=== PATIENT | female | born 1950 | race Caucasian/White ===

== ENCOUNTER 2020-10-05 13:59 | Emergency (ER) | payer MEDICARE ==
[~2020-10-05] VITALS: Ht 154.9 cm; Wt 86.6 kg
[2020-10-05] MEDS ORDERED: KETOROLAC 30 MG/ML VIAL. IVP ONE (14:30)
[2020-10-05] MEDS ORDERED: fentaNYL PF VIAL 100 MCG/2 ML VIAL IVP ONE (14:30)
[2020-10-05] MEDS ORDERED: KETOROLAC 15 MG/ML VIAL. IVP ONE (14:30)
--- NOTE | 2020-10-05 15:28 | RAD ---
EXAM: XR HUMERUS_LT 2 VIEWS, XR FOOT_RIGHT 3 VIEWS, XR SHOULDER_LEFT 2+ VIEWS 10/05/2020 2:24 PM CLINICAL INDICATION: Fall, left shoulder and humerus pain, right foot pain COMPARISON: None TECHNIQUE: 3 views of the right foot, 2 views of the left humerus, 3 views of the left shoulder FINDINGS: Right foot: There is a nondisplaced oblique fracture of the great toe proximal phalanx shaft. The bon es are diffusely demineralized. Old fifth metatarsal fracture. There is hallux valgus and mild degene rative joint disease of the great toe MTP joint. Mild degenerative joint disease of the midfoot. Medi al and lateral malleoli hardware noted. Mild diffuse soft tissue swelling. Left humerus: There is a humeral neck fracture with 1.5 to 2 cm anterior displacement of the distal fragment. No glenohumeral dislocation. Alignment at the elbow is maintained. Left shoulder: Displaced humeral neck fracture. The humeral head remains normally aligned with the gl enoid. IMPRESSION: 1. Nondisplaced oblique fracture of the right great toe proximal phalanx. 2. Displaced left humeral neck fracture. No dislocation. Electronically signed by: Romy Johnson MD (10/05/2020 3:25 PM) [id number]
--- NOTE | 2020-10-05 16:14 | PHYS DOC ---
Past Medical History Past Medical History: Hypertension Past Surgical History: Other Additional Past Surgical Histo: R shoulder, Bilat knee Smoking Status: Never Smoker Alcohol Use: None General Adult EDM: Chief Complaint: MECHANICAL FALL HPI: HPI: Patient is a 70 year old female who reports that she tripped and fell forward catching herself with her hands on the ground feeling her left shoulder pop and injuring her right great toe. Patient denies loss of consciousness, denied numbness or tingling, states that she thinks she broke her left arm, states she has not sure that she does not think she broke her right great toe because she can walk on it. Patient denies any chest pain or shortness of breath or chest palpitations, patient denies any loss of consciousness, patient denies any nasal congestion. Patient denies any back pain or swelling to her extremities. Patient denies any numbness or tingling to her right great toe or to her left arm. Patient denies any other physical symptoms or physical complaints. Review of Systems: Review of Systems: 14 body systems of review of systems have been reviewed. See HPI for pertinent positives and negative responses, otherwise all other systems are negative, nonpertinent or noncontributory. Heart Score: Risk Factors: Risk Factors: DM, Current or recent (<one month) smoker, HTN, HLP, family history of CAD, obesity. Risk Scores: Score 0 - 3: 2.5% MACE over next 6 weeks - Discharge Home Score 4 - 6: 20.3% MACE over next 6 weeks - Admit for Clinical Observation Score 7 - 10: 72.7% MACE over next 6 weeks - Early Invasive Strategies Current Medications: See nursing documentation for updated med list. Current Medications Medications (Trade) Dose Ordered Sig/[facility] Start Time Stop Time Status Last Admin Dose Admin Fentanyl Citrate (Fentanyl 2ml Vial) 50 mcg 1X ONCE 10/05/20 14:30 10/05/20 14:31 DC 10/05/20 15:10 50 MCG Ketorolac Tromethamine (Toradol 15mg Vial) 15 mg 1X ONCE 10/05/20 14:30 10/05/20 14:31 DC 10/05/20 15:09 15 MG Ketorolac Tromethamine (Toradol 30mg Vial) 30 mg 1X ONCE 10/05/20 14:30 10/05/20 14:31 Cancel Allergies: Allergies: Allergies Coded Allergies Type Severity Reaction Last Updated Verified No Known Drug Allergies 10/05/20 No Physical Exam: PE: Constitutional: Well developed, well nourished, no acute distress, non-toxic appearance. [] HENT: Normocephalic, atraumatic, bilateral external ears normal, oropharynx mo ist, no oral exudates, nose normal. [] Eyes: PERRLA, EOMI, conjunctiva normal, no discharge. [] Neck: Normal range of motion, no tenderness, supple, no stridor. [] Cardiovascular:Heart rate regular rhythm, no murmur [] Lungs & Thorax: Bilateral breath sounds clear to auscultation [] Abdomen: Bowel sounds normal, soft, no tenderness, no masses, no pulsatile masses. [] Skin: Warm, dry, no erythema, no rash. [] Back: No tenderness, no CVA tenderness. [] Extremities: , no cyanosis, no clubbing,, no edema. Pain to right great toe to palpation, full ROM, distal cap refill less than 2 seconds, no swelling no crepitus noted. Left upper shoulder limited range of motion related to pain, no deformity noted, distal cap refill less than 2 seconds, no neurovascular compromise, patient did not complain of numbness or tingling, there is no crepitus noted however only limited range of motion was achieved because of the elicited pain Neurologic: Alert and oriented X 3, normal motor function, normal sensory function, no focal deficits noted. [] Psychologic: Affect normal, judgement normal, mood normal. [] Current Patient Data: Vital Signs: Vital Signs Date Time Temp Pulse Resp B/P (MAP) Pulse Ox O2 Delivery O2 Flow Rate FiO2 10/05/20 15:10 18 97 Room Air 10/05/20 14:15 98.2 87 154/74 (100) 98.2 EKG: EKG: [] Radiology/Procedures: Radiology/Procedures: STATUS: REG ER ORD. PHYSICIAN: CHRISTY COATS APRN REASON: Fall, LT SHOULDER PAIN PROCEDURE: SHOULDER 2+V LEFT EXAM: XR HUMERUS_LT 2 VIEWS, XR FOOT_RIGHT 3 VIEWS, XR SHOULDER_LEFT 2+ VIEWS 10/05/2020 2:24 PM CLINICAL INDICATION: Fall, left shoulder and humerus pain, right foot pain COMPARISON: None TECHNIQUE: 3 views of the right foot, 2 views of the left humerus, 3 views of the left shoulder FINDINGS: Right foot: There is a nondisplaced oblique fracture of the great toe proximal phalanx shaft. The bones are diffusely demineralized. Old fifth metatarsal fracture. There is hallux valgus and mild degenerative joint disease of the great toe MTP joint. Mild degenerative joint disease of the midfoot. Medial and lateral malleoli hardware noted. Mild diffuse soft tissue swelling. Left humerus: There is a humeral neck fracture with 1.5 to 2 cm anterior displacement of the distal fragment. No glenohumeral dislocation. Alignment at the elbow is maintained. Left shoulder: Displaced humeral neck fracture. The humeral head remains normally aligned with the glenoid. IMPRESSION: 1. Nondisplaced oblique fracture of the right great toe proximal phalanx. 2. Displaced left humeral neck fracture. No dislocation. Electronically signed by: Romy Johnson MD (10/05/2020 3:25 PM) [id number] DICTATED and SIGNED BY: ROMY JOHNSON MD DATE: 10/05/20 [id number] STATUS: REG ER ORD. PHYSICIAN: CHRISTY COATS APRN REASON: FAll, RT FOOT PAIN PROCEDURE: FOOT RIGHT 3V EXAM: XR HUMERUS_LT 2 VIEWS, XR FOOT_RIGHT 3 VIEWS, XR SHOULDER_LEFT 2+ VIEWS 10/05/2020 2:24 PM CLINICAL INDICATION: Fall, left shoulder and humerus pain, right foot pain COMPARISON: None TECHNIQUE: 3 views of the right foot, 2 views of the left humerus, 3 views of the left shoulder FINDINGS: Right foot: There is a nondisplaced oblique fracture of the great toe proximal phalanx shaft. The bones are diffusely demineralized. Old fifth metatarsal fracture. There is hallux valgus and mild degenerative joint disease of the great toe MTP joint. Mild degenerative joint disease of the midfoot. Medial and lateral malleoli hardware noted. Mild diffuse soft tissue swelling. Left humerus: There is a humeral neck fracture with 1.5 to 2 cm anterior displacement of the distal fragment. No glenohumeral dislocation. Alignment at the elbow is maintained. Left shoulder: Displaced humeral neck fracture. The humeral head remains normally aligned with the glenoid. IMPRESSION: 1. Nondisplaced oblique fracture of the right great toe proximal phalanx. 2. Displaced left humeral neck fracture. No dislocation. Electronically signed by: Romy Johnson MD (10/05/2020 3:25 PM) [id number] DICTATED and SIGNED BY: ROMY JOHNSON MD DATE: 10/05/20 [id number] 0 Course & Med Decision Making: Course & Med Decision Making Pertinent Labs and Imaging studies reviewed. (See chart for details) 70-year-old patient seen the emergency department for fall, x-rays interpreted by house radiologist revealed a displaced fracture of the left proximal humerus, along with the nondisplaced fracture of the right great toe proximal phalanx. Discussed findings with patient, patient was placed in a left shoulder immobilizer and a postop shoe to the right foot, patient states that she has an orthopedist that she does very well and she will call them in the morning. Patient was given p.o. [place] 1 tablet in the hospital, patient will be given a prescription for p.o. [place] to go home. Patient gave verbal understanding of use of discharge prescriptions, use of ice packs to broken bone areas, return to ER precautions and concerns, patient had no further questions or concerns. Dragon Disclaimer: Dragdenita Disclaimer: This electronic medical record was generated, in whole or in part, using a voice recognition dictation system. Departure Departure Impression: Primary Impression: Humerus fracture Qualified Codes: S42.292A - Other displaced fracture of upper end of left humerus, initial encounter for closed fracture Additional Impressions: Fracture of right great toe Qualified Codes: S92.414A - Nondisplaced fracture of proximal phalanx of right great toe, initial encounter for closed fracture Fall Qualified Codes: W19.XXXA - Unspecified fall, initial encounter Disposition: 01 DC HOME SELF CARE/HOMELESS Condition: IMPROVED Referrals: FABI HILL (PCP) Patient Instructions: Obey Taping of Toes, Extremity Fracture Additional Instructions: Please take Tylenol and/or Motrin for mild pain I have wrote you a prescription for Vicodin for severe pain please use ice packs to the broken bone areas that we discussed approximately 15 minutes on and 15 minutes off while awake, please follow-up with your orthopedic doctor soon, call him tomorrow in the morning to let him know of your fractured left humerus and right great toe. Use the postop shoe while awake at all times. Return to the emergency department for worsening symptoms or other concerns Scripts Hydrocodone/Apap 5-325 (NORCO 5-325 TABLET) 1 Each Tablet 1-2 TAB PO Q4-6HRS for SEVERE PAIN, #20 TAB 0 Refills Prov: CHRISTY COATS APRN 10/05/20 CHRISTY COATS APRN Oct 05, 2020 16:14
[2020-10-05] MEDS ORDERED: HYDR-3164 PO (17:31)
[2020-10-05 17:40] VITALS: BP 127/72
[2020-10-05] MEDS ORDERED: HYDROcodone/APAP 7.5/325MG 1 TAB TABLET PO ONE (17:45)
== END 2020-10-05 18:00 | disposition home or self-care (01) ==
LOC: ER 13:59
DX: S42.292A Other displaced fracture of upper end of left humerus, initial encounter for closed fracture (principal); S92.414A Nondisplaced fracture of proximal phalanx of right great toe, initial encounter for closed fracture; I10 Essential (primary) hypertension; M20.11 Hallux valgus (acquired), right foot; W01.0XXA Fall on same level from slipping, tripping and stumbling without subsequent striking against object, initial encounter; Y93.89 Activity, other specified; Y92.89 Other specified places as the place of occurrence of the external cause; Y99.8 Other external cause status
CPT/HCPCS: 29105; 73030; 73060; 73630; 96374; 96375; 99285; A4565; J1885; J3010